=== PATIENT | female | born 1965 | race Caucasian/White ===

== ENCOUNTER 2019-05-19 17:04 | Emergency (ER) | payer BC, OTHER ==
--- NOTE | 2019-05-19 17:12 | EDM.PDOC ---
ED HPI GENERAL MEDICAL PROBLEM - General Chief Complaint: Respiratory Problem Stated Complaint: Fever, Congestion Time Seen by Provider: 05/19/19 17:05 Source of Information: Reports: Patient, Old Records ([facility] chart/EMR) History Limitations: Reports: No Limitations - History of Present Illness INITIAL COMMENTS - FREE TEXT/NARRATIVE: The patient drove herself to the emergency room via private automobile for evaluation of progressive greenish productive cough, nasal drainage, and diffuse 5/10 arthralgias with additional sensation of fever and chills, although she did not measure her temperature. Patient did take 400 mg of ibuprofen 5 hours prior to arrival with no known exposure to infection. She did not receive her influenza booster this season. No recent history of abdominal pain, heartburn, nausea, diarrhea, melena, gross hematochezia, or any food intolerance, including fatty foods, etc., although she did have 3 loose stools since earlier this morning. She denies any gross hematuria, colic, or other UTI symptoms. The patient denies any chest pain/pressure, heart flutter, dizziness, orthostasis, orthopnea, diaphoresis, paresthesias, recent decreased exercise tolerance, or any other anginal-type symptoms. The patient also denies any recent wheezing, dyspnea, etc.. Onset: Gradual Onset Date: 05/16/19 Duration: Getting Worse Location: Reports: Generalized Quality: Reports: Ache, Same as Previous Episode Severity: Moderate Improves with: Reports: None Worsens with: Reports: None Context: Reports: Other (As above). Denies: Sick Contact, Trauma Associated Symptoms: Reports: Cough, cough w sputum, Fever/Chills. Denies: Confusion, Chest Pain, Diaphoresis, Headaches, Loss of Appetite, Malaise, Nausea /Vomiting, Rash, Shortness of Breath, Syncope, Weakness Treatments VETERANS' COORDINATOR: Reports: NSAIDS Generalized Pain Score (Numeric/FACES): 5 - Related Data Allergies Allergy/AdvReac Type Severity Reaction Status Date / Time Cephalosporins Allergy Itching Verified 05/19/19 17:07 erythromycin base Allergy Itching Verified 05/19/19 17:07 morphine Allergy Itching Verified 05/19/19 17:07 oseltamivir phosphate Allergy Itching Verified 05/19/19 17:07 [From Tamiflu] Penicillins Allergy Itching Verified 05/19/19 17:07 Sulfa (Sulfonamide Allergy Itching Verified 05/19/19 17:07 Antibiotics) Home Meds: Home Meds . [No Known Home Meds] 05/19/19 [History] Past Medical History HEENT History: Reports: Other (See Below) Other HEENT History: Poor dentition with multiple caries. Gastrointestinal History: Reports: Cholelithiasis Genitourinary History: Reports: Acute Renal Failure, Other (See Below) Other Genitourinary History: Renal failure on 02/08/09 after delivery via as below. 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 labor at 32 1/7 weeks gestation on 02/02/09 with subsequent delivery by Musculoskeletal History: Reports: Arthritis, Osteoarthritis - Past Surgical History HEENT Surgical History: Reports: Other (See Below) Other HEENT Surgeries/Procedures: Multiple teeth extractions. GI Surgical History: Reports: Cholecystectomy, Other (See Below) Other GI Surgeries/Procedures: Laparoscopic cholecystectomy on 03/10/15. Female Surgical History: Reports: Section, Hysterectomy, Tubal Ligation, Other (See Below) Other Female Surgeries/Procedures: Emergent of at 32 weeks gestation on 02/05/09 with concomitant bilateral tubal ligation - Past Imaging History Past Imaging History: Reports: CAT Scan (CT of the abdomen and pelvis on .), Ultrasound (Gallbladder ultrasound on 03/09/15. 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 ED EXAM, GENERAL - Physical Exam Exam: See Below Exam Limited By: No Limitations General Appearance: Alert, WD/WN, No Apparent Distress Eye Exam: Bilateral Eye: EOMI, Normal Inspection (No Nystagmus. Patient wearing glasses), PERRL Ears: Normal External Exam, Normal Canal, Hearing Grossly Normal, Normal TMs Nose: Normal Mucosa, No Blood, Clear Rhinorrhea (Moderate bilateral) Throat/Mouth: Normal Lips, Normal Gums. No: Normal Teeth (Multiple missing teeth including broken teeth and caries into the gumline with no acute abscess formation), Normal Oropharynx (Trace erythema in the posterior pharynx without pinpoint white exudates or peritonsillar abscess), Normal Voice, No Airway Compromise, Dysphagia, Inflammation Head: Atraumatic, Normocephalic. No: Facial Swelling, Facial Tenderness, Sinus Tenderness Neck: Normal Inspection, Supple, Non-Tender, Full Range of Motion. No: Lymphadenopathy (L), Lymphadenopathy (R), Thyromegaly Respiratory/Chest: No Respiratory Distress, Lungs Clear, Normal Breath Sounds, No Accessory Muscle Use, Chest Non-Tender. No: Pleural Rub, Retractions Cardiovascular: Normal Peripheral Pulses, Regular Rate, Rhythm, No Edema, No Gallop, No JVD, No Murmur, No Rub. No: Gallop/S3, Gallop/S4, Friction Rub Peripheral Pulses: 2+: Radial (L), Radial (R) GI/Abdominal: Normal Bowel Sounds, Soft, Non-Tender, No Organomegaly, No Distention, No Abnormal Bruit, No Mass, Other (Obese). No: Guarding (Female) Exam: Deferred Rectal (Female) Exam: Deferred Back Exam: Normal Inspection, Full Range of Motion. No: CVA Tenderness (L), CVA Tenderness (R), Muscle Spasm Extremities: Normal Inspection, Normal Range of Motion, Non-Tender, No Pedal Edema, Normal Capillary Refill. No: Lj's Sign Neurological: Alert, Oriented, CN II-XII Intact, Normal Cognition, Normal Gait, No Motor/Sensory Deficits Psychiatric: Normal Affect Skin Exam: Warm, Dry, Intact, Normal Color, No Rash. No: Diaphoretic, Wound/ Incision Lymphatic: No Adenopathy Course - Vital Signs Last Recorded V/S: Last Vital Signs Temp 37.2 C 05/19/19 17:10 Pulse 90 05/19/19 17:10 Resp 18 05/19/19 17:10 BP 134/52 L 05/19/19 17:10 Pulse Ox 98 05/19/19 17:10 Vital Signs - 24 hr 05/19/19 17:10 Temperature [ 37.2 C Temporal] Pulse, 90 Peripheral [ Right Pulse Oximetry] Respiratory 18 Rate Blood Pressure 134/52 L [Right Upper Arm] O2 Sat by Pulse 98 Oximetry - Orders/Labs/Meds Orders: Active Orders 24 hr Category Date Time Status CULTURE STREP A CONFIRMATION [] Stat Lab 05/19/19 17:15 Results STREP SCRN A RAPID W CULT CONF [] Stat Lab 05/19/19 17:15 Results Obtain Past Medical Record [OM.PC] Routine Oth 05/19/19 17:12 Active Meds: Microbiology 05/19/19 17:15 Influenza Type A Antigen Screen - Final Nasal, Left Positive Influenza A Ag Influenza Type B Antigen Screen - Final NEGATIVE INFLUENZA B VIRUS AG REFERENCE RANGE: NEGATIVE 05/19/19 17:15 Group A Streptococcus Rapid Screen - Final Throat NEGATIVE STREP A SCREEN REFERENCE RANGE: NEGATIVE - Radiology Interpretation Free Text/Narrative:: None Departure - Departure Time of Disposition: 18:10 Disposition: Home, Self-Care 01 Condition: Good Clinical Impression: Tobacco abuse counseling, Caries, Influenza A URI (upper respiratory infection) Qualifiers: URI type: unspecified viral URI Qualified Code(s): J06.9 - Acute upper respiratory infection, unspecified - Discharge Information *PRESCRIPTION DRUG MONITORING PROGRAM REVIEWED*: Not Applicable *COPY OF PRESCRIPTION DRUG MONITORING REPORT IN PATIENT AJAY: Not Applicable Instructions: Steps to Quit Smoking, [id number], Health Risks of Smoking, Influenza, Adult, [id number], Diet and Dental Disease Referrals: PCP,None [Primary Care Provider] - Forms: ED Department Discharge, ED Return to Work/School Form Additional Instructions: 1. Follow up with your regular provider in 10-14 days as needed, if symptoms persist. Bring these discharge instructions with you to that visit.. 2. Tylenol 650 mg by mouth every 4 hours and/or OTC ibuprofen 2-3 tabs by mouth every 6 hours with food as directed./needed. You may stagger these medications for 48-72 hours only, which essentially means that you are receiving a pain medication about every 2 hours. 3. Hygiene precautions as discussed 4. Work excuse- See Form 5. Follow-up with your dentist SIOMARA as discussed 6. Stop all tobacco use SIOMARA as directed/per provided information and consider contacting Quit LIne, etc.. 7. Immediately after this visit verify that your cellular telephone's voicemail has been activated and is empty. Also verify that your home telephone 's answering machine is operating properly and has space to receive messages. Note that it is sometimes necessary for us to be able to contact you at a later date to discuss your medical care. 8. Please remember that we are ALWAYS here for you and want to answer any questions you may have. Feel free to call the hospital any time and we call you back SIOMARA. Sepsis Event Note - Focused Exam Vital Signs: Vital Signs Temp Pulse Resp BP Pulse Ox 05/19/19 17:10 37.2 C 90 18 134/52 L 98 Date Exam was Performed: 05/19/19 Time Exam was Performed: 19:33 - Problem List & Annotations (1) Influenza A SNOMED Code(s): 150617099 Code(s): J10.1 - FLU DUE TO OTH IDENT INFLUENZA VIRUS W OTH RESP MANIFEST Status: Acute Priority: High Current Visit: Yes Onset Date: ~05/16/19 Annotation/Comment:: Patient is no longer a candidate for antiviral therapy. Symptomatic relief per discharge instructions. Patient did not wish to have an IM Depo-Medrol injection for her arthralgias. She was strongly encouraged to obtain influenza boosters on a yearly basis with update of her influenza immunization SIOMARA after current infection resolves. Hygiene issues were discussed. Work excuse was provided. (2) Caries SNOMED Code(s): 73983353 Code(s): K02.9 - DENTAL CARIES, UNSPECIFIED Status: Chronic Priority: Medium Current Visit: Yes Annotation/Comment:: Strongly poor dentition. Patient strongly advised to follow-up with her dentist SIOMARA once her current influenza infection resolves. Dental dietary information provided. (3) Tobacco abuse counseling SNOMED Code(s): 927857840, 940975375, [id number] Code(s): Z71.6 - TOBACCO ABUSE COUNSELING Status: Chronic Priority: Medium Current Visit: Yes Annotation/Comment:: Tobacco cessation strongly encouraged for the patient and her with information provided at discharge. (4) URI (upper respiratory infection) SNOMED Code(s): 37992721 Code(s): J06.9 - ACUTE UPPER RESPIRATORY INFECTION, UNSPECIFIED Status: Acute Current Visit: Yes Onset Date: ~05/16/19 Annotation/Comment:: Possible concomitant viral GE. Symptomatic relief as above. Qualifiers: URI type: unspecified viral URI Qualified Code(s): J06.9 - Acute upper respiratory infection, unspecified - Problem List Review Problem List Initiated/Reviewed/Updated: Yes - My Orders Last 24 Hours: My Active Orders 05/19/19 17:12 Obtain Past Medical Record [OM.PC] Routine 05/19/19 17:15 CULTURE STREP A CONFIRMATION [RM] Stat STREP SCRN A RAPID W CULT CONF [RM] Stat - Assessment/Plan Last 24 Hours: My Active Orders 05/19/19 17:12 Obtain Past Medical Record [OM.PC] Routine 05/19/19 17:15 CULTURE STREP A CONFIRMATION [RM] Stat STREP SCRN A RAPID W CULT CONF [RM] Stat Assessment:: As above Plan: As above. Extensive precautions were given to the patient, who is in agreement with the treatment plan.
[2019-05-19 19:21] VITALS: BP 134/52; PULSE 90
== END 2019-05-19 18:10 | disposition home or self-care (01) ==
LOC: LL.ED 17:04
DX: J10.1 Influenza due to other identified influenza virus with other respiratory manifestations (principal); K02.9 Dental caries, unspecified; F17.210 Nicotine dependence, cigarettes, uncomplicated; Z71.6 Tobacco abuse counseling; M19.90 Unspecified osteoarthritis, unspecified site; Z88.1 Allergy status to other antibiotic agents; Z88.0 Allergy status to penicillin; Z88.2 Allergy status to sulfonamides; Z88.8 Allergy status to other drugs, medicaments and biological substances
CPT/HCPCS: 87081; 87430; 87804; 99283

== ENCOUNTER 2022-08-30 07:42 | Day surgery (SDC) | payer BC ==
[2022-08-30] MEDS ORDERED: Propofol 200 MG/20 ML SDV ONE ×2 (07:55→09:40)
[2022-08-30] MEDS ORDERED: Sodium Chloride 0.9% 10 ML Syringe FLUSH PRN (08:45)
[2022-08-30] MEDS ORDERED: Lactated Ringers 1,000 ML IV SCH (08:45)
[2022-08-30 10:02] VITALS: BP 124/60; PULSE 63
== END 2022-08-30 10:34 | disposition home or self-care (01) ==
LOC: LL.SDS 07:42
PROVIDERS: ATTEND Surgery
DX: Z12.11 Encounter for screening for malignant neoplasm of colon (principal); D12.4 Benign neoplasm of descending colon; D12.5 Benign neoplasm of sigmoid colon; I10 Essential (primary) hypertension; E78.00 Pure hypercholesterolemia, unspecified; N17.9 Acute kidney failure, unspecified; M19.90 Unspecified osteoarthritis, unspecified site; F17.210 Nicotine dependence, cigarettes, uncomplicated; Z88.0 Allergy status to penicillin; Z88.6 Allergy status to analgesic agent; Z88.8 Allergy status to other drugs, medicaments and biological substances; Z88.2 Allergy status to sulfonamides; Z79.899 Other long term (current) drug therapy; Z90.49 Acquired absence of other specified parts of digestive tract; Z98.890 Other specified postprocedural states
CPT/HCPCS: 00812; J2704; J7120